=== PATIENT | female | born 2000 | race Caucasian/White ===

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

== ENCOUNTER 2018-01-06 19:22 | Emergency (ER) | payer BC ==
[~2018-01-06] VITALS: Ht 157.5 cm; Wt 70.4 kg
[2018-01-06] MEDS ORDERED: BACITRACIN28.4 GM TP (21:12)
[2018-01-06 21:32] VITALS: BP 125/81
== END 2018-01-06 21:33 | disposition home or self-care (01) ==
LOC: RME 19:22 → EME 19:22 → RME 21:33
PROC: 2W21X4Z Dressing of Face using Bandage (ICD-10-PCS; principal; 2018-01-06)
DX: T20.13XA Burn of first degree of chin, initial encounter (principal); T31.0 Burns involving less than 10% of body surface; X10.1XXA Contact with hot food, initial encounter
CPT/HCPCS: 99281; 99284